=== PATIENT | male | born 1990 | race Caucasian/White ===

== ENCOUNTER 2022-11-18 21:43 | Emergency (ER) | payer BC, SELFPAY ==
[2022-11-18 21:43] VITALS: BP 136/81; PULSE 70; RESP 19; TEMP 36.7; O2SAT 100
--- NOTE | 2022-11-19 01:34 | ED.GENADULT ---
HPI - General Adult General Chief complaint: Dental/Oral Time Seen by Provider: 11/19/22 01:26 Source: patient Mode of arrival: ambulatory Limitations: no limitations History of Present Illness HPI narrative: This is a 31-year-old male who presents to the ED with chief complaint of a toothache beginning about 5 hours prior to arrival. Patient states that he has a dentist. He has not been seen for this previously. Reports a remote history of infection in the past that got better with antibiotics. Reports pain is radiating from the right upper mouth into the right side of the face and right ear. Denies fevers, chills, trouble swallowing or speaking. Related Data Allergies Allergy/AdvReac Type Severity Reaction Status Date / Time No Known Allergies Allergy Verified 11/19/22 00:20 Exam Narrative: GENERAL: Well-appearing, well-nourished, and in no acute distress. HEAD: Normocephalic, atraumatic. EYES: PERRLA and EOMI. ENT: No identifiable dental abscess noted. Caries noted to the right upper canine. Floor the mouth is intact. Nares clear, no rhinorrhea or epistaxis. Mucous membranes moist. Oropharynx without tonsillar hypertrophy exudate or other lesions. NECK: Supple. No adenopathy or masses. CHEST: No respiratory distress. Clear to auscultation. No wheezes rales or rhonchi HEART: Regular rate and rhythm. No murmur heard. Normal peripheral pulses. ABDOMEN: Soft, nontender, nondistended, normal active bowel sounds. MSK: Normal range of motion. No edema. SKIN: Warm, dry, no rash. NEURO: Alert and oriented x3. No focal deficits. PSYCH: Normal mood and affect. Course Vital Signs Vital signs: Vital Signs Temperature 98.0 F 11/18/22 21:43 Pulse Rate 70 11/18/22 21:43 Respiratory Rate 19 11/18/22 21:43 Blood Pressure 136/81 11/18/22 21:43 Pulse Oximetry 100 11/18/22 21:43 Oxygen Delivery Room Air 11/18/22 21:43 Temperature 98.0 F 11/18/22 21:43 Pulse Rate 70 11/18/22 21:43 Respiratory Rate 19 11/18/22 21:43 Blood Pressure 136/81 11/18/22 21:43 Pulse Oximetry 100 11/18/22 21:43 Oxygen Delivery Room Air 11/18/22 21:43 Medical Decision Making MDM Narrative Medical decision making narrative: This is a 31-year-old male who presents to the ED with chief complaint of right side dental pain beginning earlier this evening. Vitals are normal. Afebrile. Exam is benign. No abscess identified. No systemic signs. He will be given pain control here. Prescription for antibiotics given. He is understanding that he needs to follow-up with a dentist for definitive management for this dental pain. He is stable for discharge at this point. Return precautions given and supportive measures discussed. Vital Signs Vital Signs: Vital Signs Temperature 98.0 F 11/18/22 21:43 Pulse Rate 70 11/18/22 21:43 Respiratory Rate 19 11/18/22 21:43 Blood Pressure 136/81 11/18/22 21:43 Pulse Oximetry 100 11/18/22 21:43 Oxygen Delivery Room Air 11/18/22 21:43 Temperature 98.0 F 11/18/22 21:43 Pulse Rate 70 11/18/22 21:43 Respiratory Rate 19 11/18/22 21:43 Blood Pressure 136/81 11/18/22 21:43 Pulse Oximetry 100 11/18/22 21:43 Oxygen Delivery Room Air 11/18/22 21:43 Discharge Plan Discharge Clinical Impression: Toothache, Dental caries Patient Disposition: Home, Self-Care Condition: Stable Instructions: Antibiotic Form, Toothache (ED) Additional Instructions: Your exam today is reassuring. Please take antibiotics through their full course. Use Tylenol and ibuprofen as needed for pain. If you have any new or worsening symptoms as we discussed please return to the ER for further evaluation. Otherwise this should be followed up closely with a dentist for definitive management. Prescriptions: New amoxicillin-pot clavulanate 875-125 mg tablet 1 tablet PO Q12H Qty: 14 0RF Follow-up/Referrals: PHYSICIAN,RISK ASSESSOR [Primary
[2022-11-19] MEDS: HYDROcodone/acetaminophen (*CRX) 7.5-325 MG TABLET 1 TAB PO (01:58)
[2022-11-19] MEDS: AMOXICILLIN/CLAVULANATE K 875-125 MG TAB 1 TABLET PO (01:59)
[2022-11-19] MEDS: KETOROLAC 30 MG/ML VIAL (*BKC) IM (02:00)
[2022-11-19 02:15] VITALS: BP 138/92; PULSE 71; RESP 20; O2SAT 100
== END 2022-11-19 02:16 | disposition home or self-care (01) ==
PROVIDERS: Emergency Provider Physician Assistant
DX: K02.9 Dental caries, unspecified (principal)
CPT/HCPCS: 96372; 99283; A9270; J1885

== ENCOUNTER 2024-05-12 16:38 | Emergency (ER) | payer BC, SELFPAY ==
--- NOTE | ~2024-05-12 | XR_ITS ---
EXAMINATION: XR chest 2V DATE: 05/12/2024 17:11 INDICATION: Near syncope TECHNIQUE: PA and lateral views of the chest were obtained. COMPARISON: None FINDINGS: The lungs are clear with no focal airspace opacities, pulmonary edema, pleural effusion or pneumothor ax. The cardiomediastinal silhouette is normal. Visualized bones and soft tissues are unremarkable. IMPRESSION: 1. No acute cardiopulmonary disease. Reviewed, dictated and finalized at location A. WALL SPRAYER
[2024-05-12 16:39] VITALS: BP 143/94; PULSE 95; RESP 16; TEMP 36.4; O2SAT 100
[2024-05-12 16:58] LABS: Basophils Absolute Auto 0.1 K/mm3 (0.0-0.1); Basophils Percent Auto 0.6 % (0.2-1.2); Eosinophils Absolute Auto 0.2 K/mm3 (0-0.3); Eosinophils Percent Auto 2.3 % (0-4.4); Hematocrit 42.9 % (42.0-52.0); Hemoglobin 14.3 g/dL (14.0-18.0); Immature Granulocyte Absolute 0.02 K/mm3 (0.00-0.031); Immature Granulocyte Percent A 0.2 % (0-0.5); Lymphocytes Absolute Auto 3.33 K/mm3 (0.9-3.2); Lymphocytes Percent Auto 34.5 % (18.3-44.2); Mean Corpuscular HGB Conc 33.3 g/dl (32-36); Mean Corpuscular Hemoglobin 25.8 pg (26-34); Mean Corpuscular Volume 77.4 fl (80-100); Mean Platelet Volume 10.7 fl (7.4-10.4); Monocytes Absolute Auto 0.8 K/mm3 (0.1-0.6); Monocytes Percent Auto 8.5 % (2.6-8.5); Neutrophils Absolute Auto 5.2 K/mm3 (1.3-6.7); Neutrophils Percent Auto 53.9 % (45.5-73.1); Platelet Count Result 234 k/mm3 (150-375); Red Blood Count 5.54 M/mm3 (4.6-6.20); Red Cell Distribution Width 12.3 % (11.5-14.5); White Blood Count 9.7 K/mm3 (4.5-10.0)
[2024-05-12 17:05] VITALS: BP 120/69; PULSE 65
[2024-05-12 17:06] VITALS: BP 116/80; PULSE 65
--- NOTE | 2024-05-12 17:06 | ED.GENADULT ---
HPI - General Adult General Chief complaint: Syncope Stated complaint: near syncope Time Seen by Provider: 05/12/24 16:49 History of Present Illness HPI narrative: Patient 33-year-old gentleman presents emergency department with chief complaint of near syncopal episode. Patient reports that he had an energy drink this morning at work and then after work and a half of an energy drink and a pen she had of marijuana the patient states that he started feeling tingly all over noticed that his heart rate was beating fast and called EMS. The patient reports that he is feeling much better at this time Related Data Allergies Allergy/AdvReac Type Severity Reaction Status Date / Time No Known Allergies Allergy Verified 05/12/24 16:43 Review of Systems Review of Systems: A 10 system review of systems was completed on the patient and is negative except for what is stated in the HPI. Nursing and ancillary documentation was reviewed. Exam Narrative: GENERAL: Well-appearing, well-nourished, and in no acute distress. HEAD: Normocephalic, atraumatic. EYES: PERRLA and EOMI. ENT: Nares clear, no rhinorrhea or epistaxis. Mucous membranes moist. NECK: Supple. CHEST: Clear to auscultation. No respiratory distress. HEART: Regular rate and rhythm. No murmur heard. Normal peripheral pulses. ABDOMEN: Soft, nontender, nondistended, normal active bowel sounds. EXTREMITIES: Normal range of motion. No edema. SKIN: Warm, dry, no rash. NEURO: No focal deficits. Alert and oriented x3. PSYCH: Normal mood and affect. Course Vital Signs Vital signs: Vital Signs Temperature 36.4 C 05/12/24 16:39 Pulse Rate 95 05/12/24 16:39 Respiratory Rate 16 05/12/24 16:39 Blood Pressure 143/94 H 05/12/24 16:39 Pulse Oximetry 100 05/12/24 16:39 Oxygen Delivery Room Air 05/12/24 16:39 Temperature 36.4 C 05/12/24 16:39 Pulse Rate 77 05/12/24 19:06 Respiratory Rate 16 05/12/24 19:06 Blood Pressure 122/80 05/12/24 19:06 Pulse Oximetry 100 05/12/24 19:06 Oxygen Delivery Room Air 05/12/24 16:39 Medical Decision Making Vital Signs Vital Signs: Vital Signs Temperature 36.4 C 05/12/24 16:39 Pulse Rate 95 05/12/24 16:39 Respiratory Rate 16 05/12/24 16:39 Blood Pressure 143/94 H 05/12/24 16:39 Pulse Oximetry 100 05/12/24 16:39 Oxygen Delivery Room Air 05/12/24 16:39 Temperature 36.4 C 05/12/24 16:39 Pulse Rate 77 05/12/24 19:06 Respiratory Rate 16 05/12/24 19:06 Blood Pressure 122/80 05/12/24 19:06 Pulse Oximetry 100 05/12/24 19:06 Oxygen Delivery Room Air 05/12/24 16:39 Lab Data 05/12/24 16:52 05/12/24 16:52 Labs: Lab Results 05/12/24 05/12/24 05/12/24 Range/Units 16:52 16:57 17:22 WBC 9.7 (4.5-10.0) K/mm3 RBC 5.54 (4.6-6.20) M/mm3 Hgb 14.3 (14.0-18.0) g/dL Hct 42.9 (42.0-52.0) % MCV 77.4 L (80-100) fl MCH 25.8 L (26-34) pg MCHC 33.3 (32-36) g/dl RDW 12.3 (11.5-14.5) % Plt Count 234 (150-375) k/mm3 MPV 10.7 H (7.4-10.4) fl Immature Gran % (Auto) 0.2 (0-0.5) % Neut % (Auto) 53.9 (45.5-73.1) % Lymph % (Auto) 34.5 (18.3-44.2) % Boone % (Auto) 8.5 (2.6-8.5) % Eos % (Auto) 2.3 (0-4.4) % Baso % (Auto) 0.6 (0.2-1.2) % Lymph # (Auto) 3.33 H (0.9-3.2) K/mm3 Boone # (Auto) 0.8 H (0.1-0.6) K/mm3 Eos # (Auto) 0.2 (0-0.3) K/mm3 Baso # (Auto) 0.1 (0.0-0.1) K/mm3 Abs Immat Gran (auto) 0.02 (0.00-0.031) K/mm3 Absolute Neuts (auto) 5.2 (1.3-6.7) K/mm3 Absolute Nucleated RBC 0.000 (0.0-0.012) K/mm3 Nucleated RBC % 0.0 (0.0-0.2) % Sodium 137 (137-145) mmol/L Potassium 2.9 L (3.4-5.0) mmol/L Chloride 98 (98-107) mmol/L Carbon Dioxide 22 (22-30) mmol/L Anion Gap 17 H (4-12) mmol/L BUN 19 (9-20) mg/dL Creatinine 0.82 (0.7-1.3) mg/dL Estim Creat Clear Calc 109 ml/min Estimated GFR > 60 (59 - ) Glucose 118 H (65-110) mg/dL POC Capillary Glucose 110 H (65-105) mg/dl Lactic Acid 1.6 (0.7-2.0) mmol/L Calcium 9.6 (8.4-10.2) mg/dL Magnesium 1.9 (1.6-2.3) mg/dL Total Bilirubin 0.7 (0.2-1.3) mg/dL AST 35 (17-59) U/L ALT 19 (6-50) U/L Alkaline Phosphatase 66 (38-126) U/L Total Protein 8.0 (6.3-8.2) g/dL Albumin 5.0 (3.5-5.1) g/dL Influenza A (RT-PCR) Negative (Negative) Influenza B (RT-PCR) Negative (Negative) RSV (RT-PCR) Negative (Negative) SARS-CoV-2 RNA (RT-PCR) Negative (Negative) Discharge Plan Discharge Clinical Impression: Near syncope, Palpitations, Hypokalemia Patient Disposition: Home, Self-Care Condition: Stable Instructions: Antibiotic Form, Near Syncope (ED) Patient Language: [place] Prescriptions: New potassium chloride [K-Tab] 20 mEq tablet extended release 20 meq PO BID 5 Days Qty: 10 0RF No Action amoxicillin-pot clavulanate 875-125 mg tablet 1 tablet PO Q12H Qty: 14 0RF Follow-up/Referrals: PHYSICIAN,SOLAR WATER HEATER INSTALLER [Non-Staff] - Lalo Villalobos MD [Physician] - Time of Disposition: 19:17
[2024-05-12 17:07] VITALS: BP 116/90; PULSE 80
[2024-05-12 17:10] LABS: Glucose Point of Care 110 mg/dl (65-105)
[2024-05-12 17:17] LABS: Alanine Aminotransferase 19 U/L (6-50); Alkaline Phosphatase 66 U/L (38-126); Anion Gap 17 mmol/L (4-12); Aspartate Amino Transferase 35 U/L (17-59); Bilirubin,Total 0.7 mg/dL (0.2-1.3); Blood Urea Nitrogen 19 mg/dL (9-20); Calcium 9.6 mg/dL (8.4-10.2); Carbon Dioxide 22 mmol/L (22-30); Chloride 98 mmol/L (98-107); Estimated CRCL calculation 109 ml/min; Estimated Glomerular Filt Rate > 60; Glucose 118 mg/dL (65-110); Potassium 2.9 mmol/L (3.4-5.0); Sodium 137 mmol/L (137-145)
[2024-05-12] MEDS: SODIUM CHLORIDE 0.9% IV 1,000 ML 999 ML IV CONT (17:22)
[2024-05-12 17:34] LABS: Magnesium 1.9 mg/dL (1.6-2.3)
[2024-05-12 17:39] LABS: Lactic Acid Reflex 1.6 mmol/L (0.7-2.0)
[2024-05-12 18:03] LABS: Influenza A QL RT-PCR Negative (Negative); Influenza B QL RT-PCR Negative (Negative); RSV RNA, RT-PCR Negative (Negative); SARS-CoV-2 RNA PCR Negative (Negative)
[2024-05-12] MEDS: KCL 20 MEQ/SW 100 ML 100 ML 50 MEQ IVPB (18:23)
[2024-05-12] MEDS: POTASSIUM CHLORIDE 20 MEQ PACKET (FOR LIQUID) 40 MEQ PO (18:26)
--- NOTE | 2024-05-12 19:05 | PC.NURSE ---
Pt. requesting food. Per Dr. Perales, pt. ok to eat and drink at this time. Pt. updated. Sister at bedside bringing him food.
[2024-05-12 19:06] VITALS: BP 122/80; PULSE 77; RESP 16; O2SAT 100
[2024-05-12 20:26] VITALS: BP 115/78; PULSE 74; RESP 19; O2SAT 99
--- OUTSIDE RECORDS SUMMARY | 2024-05-14 20:10 | XMS_ITS | Encounter Summary ---
Author Organization [facility] Address [address] [place] [address]. [place], [place] [address] [place] [address] Care Team Providers Care Industrial Sales Manager Name Role Phone Carla Danielle NP Primary Care Provider [phone] Akbar Ramsey Primary Care Provider [phone] Carla Danielle CHIEF CONTROLLER TOWER Primary Care Provider [phone] Akbar Ramsey Primary Care Provider [phone] Encounter Details Date Type Department Care Team (Late st Contact Info) Description 03/05/2023 MyChart Message Enc [facility] Medical Group Family & Internal Medicine [facility] [id number] [place] [address] [place]la Danielle [place] [id number] [place] [address] [address] [place] [address] Infection Social History Tobacco Use Types Packs/Day Years Used Date Smoking Tobacco: Never Smokeless Tobacco: Never Alcohol Use Standard Drinks/Week Comments Yes 0 (1 standard drink = 0.6 oz pur e alcohol) rare PHQ-2 Answer Date Recorded Patient Health Questionnaire-2 Score 0 08/14/2022 Sex and Gender Information Value Date Recorded Sex Assigned at Male 05/13/2024 8:30 AM EYE SPECIALIST Legal Sex Male 7:15 PM CDT Gender Identity Not on file Sexual Orientation Not on file documented as of this encounter Progress Notes * Sunny Villela RN - 03/05/2023 3:59 PM CST Please advise. SPECIALIST documented in this encounter Plan of Treatment Upcoming Encounters Date Type Department Care Team (Late st Contact Info) Description 08/18/2024 3:40 PM CDT Office Visit [facility] Medical Group Family & Internal Medicine [facility] [address] [place] [address] [place] [address] [place] [address] documented as of this encounter Visit Diagnoses Not on filedocumented in this encounter Care Teams Industrial Sales Manager Relationship Specialty Start [place] [address] [facility], [address] [address] PCP - General Nurse Practitioner Family 08/02/2206/26 [place] [address] [place] [address] PCP - General Physician Online Communications Manager Medical 06/28/23 [place] [address] [facility], [address] [id number] PCP - General 08/18/23 08/18/23 [place] [address] [place] [address] PCP - General Physician Online Communications Manager Medical 08/19/23 documented as of this encounter
--- OUTSIDE RECORDS SUMMARY | 2024-05-14 20:10 | XMS_ITS | Clinical Summary ---
Author Organization [facility] Address [address] [place] [address]. [place], [place] [address] [place] [address] Care Team Providers Care Closing Coordinator Name Role Phone Akbar Ramsey Primary Care Provider [phone] Allergies No known active allergies Medications potassium chloride CR (K-TAB) 20 MEQ tablet Take 1 tablet (20 mEq total) by mouth daily. 05/12/2024 Active clindamycin (CLEOCIN) 300 MG capsuleIndicati ons:History of dental abscess Take 1 capsule (300 mg total) by mouth 3 (three) times daily for 10 days. 30 capsule 05/13/2024 Active Active Problems Problem Noted Date Diagnosed Date Status post incision and drainage 12/29/2017 Resolved Problems Problem Noted Date Diagnosed Date Resolved Date Disorder of shoulder 12/29/2017 024 Encounter for preventive health examination 12/27/2017 03/11/2023 Encounters Date Type Department Care Team Description 05/13/2024 8:40 AM METAL STUD FRAMER Office Visit [facility] Medical Group Family & Internal Medicine [address] [address] Akbar Ramsey PA Dental Problem (discuss); ER F/U (Pt here for follow up from ED on 05/11) 05/13/2024 Travel from Last 3 Months Immunizations Name Administration Dates Next Due Dtp (Generic) 12/16/1995, 3,12/14/1991,05/20/1991,03/20/19 91 Hepatitis B Pediatric 08/04/2001,04/02/2001,12/2000 MMR (MMRII) 12/16/1995,05/16/1992 Meningococcal (Generic) 02/21/2006 Polio Opv (Generic) 12/16/1995, 3,12/14/1991,05/20/1991,03/20/19 91 Tdap (Generic) 12/16/2016,02/21/2006 Family History Medical History Relation Comments No Known Problems Brother No Known Problems Daughter No Known Problems Father No Known Problems Maternal Aunt Cancer Maternal Grandfather Lung cancer Lung Cancer Maternal Grandfather No Known Problems Maternal Grandmother No Known Problems Maternal Uncle No Known Problems Mother No Known Problems Other No Known Problems Paternal Aunt No Known Problems Paternal Grandfather No Known Problems Paternal Grandmother No Known Problems Paternal Uncle No Known Problems Sister No Known Problems Son Relation Status Comments Brother Daughter Father Maternal Aunt Maternal Grandfather Maternal Grandmother Maternal Uncle Mother Other Paternal Aunt Paternal Grandfather Paternal Grandmother Paternal Uncle Sister Son Social History Tobacco Use Types Packs/Day Years Used Date Smoking Tobacco: Former Cigarettes 1 15 S tarted: 05/21/2014 Smokeless Tobacco: Never Tobacco Cessation:Counseling Given: Yes Alcohol Use Standard Drinks/Week Comments Yes 0 (1 standard drink = 0.6 oz pur e alcohol) rare PHQ-2 Answer Date Recorded Patient Health Questionnaire-2 Score 0 05/13/2024 Sex and Gender Information Value Date Recorded Sex Assigned at Male 05/13/2024 8:30 AM METAL STUD FRAMER Legal Sex Male 7:15 PM CDT Gender Identity Not on file Sexual Orientation Not on file Last Filed Vital Signs Vital Sign Reading Time Taken Comments Blood Pressure 107/75 05/13/2024 8:34 AM METAL STUD FRAMER Pulse 74 05/13/2024 8:34 AM METAL STUD FRAMER Temperature 36.8 ??C (98.3 ??F) 05/13/2024 8:34 AM CS T Respiratory Rate 16 05/13/2024 8:34 AM METAL STUD FRAMER Oxygen Saturation 100% 05/13/2024 8:34 AM METAL STUD FRAMER Inhaled Oxygen Concentration - - Weight 69.9 kg (154 lb) 05/13/2024 8:34 AM METAL STUD FRAMER Height 182.9 cm (6') 05/13/2024 8:34 AM METAL STUD FRAMER Body Mass Index 20.89 05/13/2024 8:34 AM METAL STUD FRAMER Plan of Treatment Upcoming Encounters Date Type Department Care Team (Late Contact Info) Description 08/18/2024 3:40 PM CDT Office Visit [facility] Medical Group Family & Internal Medicine [facility] [address] [place] [address] [place] [address] [place] [address] Health Maintenance Due Date Last Done Comments COVID-19 Vaccine ( season) 2023 Influenza Adult (#1) 2024 Annual Physical 08/18/2024 08/19/2023, 08/14/2022 PHQ-2 (Physician [place]) 05/13/2025 05/13/2024 DTaP, Tdap and Td Vaccines (8 - Td or Tdap) 12/16/2026 12/16/2016, 02/21/2006, 12/16/1995, Additional history exists Hepatitis B Vaccines Completed 08/04/2001, 04/02/2001, 01/28/2001 Meningococcal Vaccine Aged Out 02/21/2006 No felipe odessa eligible based on patient's age to complete this topic Hepatitis C Completed 03/05/2023 HPV Vaccines Aged Out No longer eligi ble based on patient's age to complete this topic Meningococcal B Vaccine Aged Out No l onger eligible based on patient's age to complete this topic Pneumococcal Vaccine: Pediatrics (0 to 5 Years) and At-Risk Patients (6 to 64 Years) Aged Out No longer eligible based on patient's age to complete this topic RSV Immunizations Under 20 Months Aged Out No longer eligible based on patient's age to complete this topic Procedures Procedure Name Priority Date/Time Associated Diagnosis Comments HEPATITIS C ANTIBODY Routine 03/05/2023 3:38 PM METAL STUD FRAMER Encounter for hepatitis C screening test for low risk patient from Last 3 Months or Most Recently Relevant to Health Maintenance Results * HEPATITIS C ANTIBODY (03/05/2023 3:38 PM METAL STUD FRAMER) HEPATITIS C AB NON-REACTI VE NON-REACTI VE 03/05/2023 8:35 PM METAL STUD FRAMER [facility] 03/05/2023 3:38 PM METAL STUD FRAMER us Carla Danielle INSPECTOR FLOOR SUB ASSEMBLY LABORATORY Final Result [facility] [address] [place] [address], [place] [phone] from Last 3 Months or Most Recently Relevant to Health Maintenance Insurance [address] [address] Care Teams Closing Coordinator Relationship Specialty [place] [address] [facility] [place] [address] PCP - General Physician Wire Mesh Filter Fabricator Medical 08/19/23
--- OUTSIDE RECORDS SUMMARY | 2024-05-14 20:10 | XMS_ITS | Encounter Summary ---
Author Organization [facility] Address [address] [place] [address]. [place] [address] [place] [address] Care Team Providers Care Research Chef Name Role Phone None, Provider Primary Care Provider Carla Elam NP Primary Care Provider [phone] Akbar Ramsey Primary Care Provider [phone] Carla Danielle NP Primary Care Provider [phone] Akbar Ramsey Primary Care Provider [phone] Encounter Details Date Type Department Care Team (Late st Contact Info) Description 11/12/2003 Abstract [facility] CONVERSION [address] [place] [address] , Generic Conversion, Social History Tobacco Use Types Packs/Day Years Used Date Smoking Tobacco: Never Assessed Sex and Gender Information Value Date Recorded Sex Assigned at Male 05/13/2024 8:30 AM FINISHING SUPERVISOR Legal Sex Male 7:15 PM CDT Gender Identity Not on file Sexual Orientation Not on file documented as of this encounter Plan of Treatment Upcoming Encounters Date Type Department Care Team (Late st Contact Info) Description 08/18/2024 3:40 PM CDT Office Visit [facility] Medical Group Family & Internal Medicine [facility] [address] [place] [address] [place] [address] [place] [address] documented as of this encounter Visit Diagnoses Not on filedocumented in this encounter Care Teams Research Chef Relationship Specialty Start Date End Date None, Provider, PCP - General 01/20/22 08/01/22 [place] [address] [address], [address] [place] [address] PCP - General Nurse Practitioner Family 08/02/2206/26 [place] [address] [place] [address] PCP - General Physician Vp Software Engineering Medical 06/28/23 [place] [address] [address], [address] [place] [address] PCP - General 08/18/23 08/18/23 [place] [address] [place] [address] PCP - General Physician Vp Software Engineering Medical 08/19/23 documented as of this encounter
--- OUTSIDE RECORDS SUMMARY | 2024-05-14 20:10 | XMS_ITS | Encounter Summary ---
Author Organization [facility] Address [address] [place] [address]. [place], [place] [address] [place] [address] Care Team Providers Care Car Repairer Apprentice Name Role Phone None, Provider Primary Care Provider Carla Elam NP Primary Care Provider [phone] Akbar Ramsey Primary Care Provider [phone] Carla Danielle NP Primary Care Provider [phone] Akbar Ramsey Primary Care Provider [phone] Encounter Details Date Type Department Care Team (Late st Contact Info) Description 12/30/2017 Abstract [facility] Medical [facility] General Surgery - [place] [address] [facility], [address] [place] [address] Wilbur Carbajal MD [address] [facility] [address] [place] [address] Social History Tobacco Use Types Packs/Day Years Used Date Smoking Tobacco: Never Assessed Sex and Gender Information Value Date Recorded Sex Assigned at Male 05/13/2024 8:30 AM CREDIT RISK ANALYTICS MANAGER Legal Sex Male 7:15 PM CDT Gender Identity Not on file Sexual Orientation Not on file documented as of this encounter Plan of Treatment Upcoming Encounters Date Type Department Care Team (Late st Contact Info) Description 08/18/2024 3:40 PM CDT Office Visit [facility] Family & Internal Medicine [address] [address] Akbar Ramsey [place] [id number] [place] [address], [place] [address] documented as of this encounter Visit Diagnoses Not on filedocumented in this encounter Care Teams Car Repairer Apprentice Relationship Specialty Start Date End Date None, Provider, PCP - General 01/20/22 08/01/22 [place] [address] [address], [address] [place] [address] PCP - General Nurse Practitioner Family 08/02/2206/26 [place] [address] [place] [address] PCP - General Physician Candle Pourer Medical 06/28/23 [place] [address] [address], [address] [place] [address] PCP - General 08/18/23 08/18/23 [place] [address] [place] [address] PCP - General Physician Candle Pourer Medical 08/19/23 documented as of this encounter
== END 2024-05-12 20:27 | disposition home or self-care (01) ==
PROVIDERS: Emergency Medicine; Emergency Provider Emergency Medicine
DX: R55 Syncope and collapse (principal); R00.2 Palpitations; E87.6 Hypokalemia; Z20.822 Contact with and (suspected) exposure to COVID-19
CPT/HCPCS: 36415; 71046; 80053; 82948; 83605; 83735; 85025; 87637; 93005; 96361; 96365; 96366; 99284; A9270; J3480; J7030; J7040